=== PATIENT | female | born 1965 | race Caucasian/White ===

== ENCOUNTER → 2019-08-07 | Outpatient (CLI) | payer BC ==
[~2019-08-07] MED LIST: ACET-1600 PO
[2019-08-07 11:50] LABS: BASOPHILS # (AUTO) 0.02 x10^3/uL (0-0.1); BASOPHILS % (AUTO) 0 % (0-1); EOSINOPHILS # (AUTO) 0.07 x10^3/uL (0-0.4); EOSINOPHILS % (AUTO) 1 % (1-7); LYMPHOCYTES % (AUTO) 17 % (22-44); MD NO; MEAN CORPUSCULAR HEMOGLOBIN 31.1 pg (27.0-34.8); MEAN CORPUSCULAR HGB CONC 34.2 g/dL (32.4-35.8); MEAN PLATELET VOLUME 8.8 fL (7.4-10.4); MONOCYTES # (AUTO) 0.35 x10^3/uL (0.2-0.8); MONOCYTES % (AUTO) 5 % (2-9); NEUTROPHILS # (AUTO) 5.14 x10^3/uL (1.8-6.8); NEUTROPHILS % (AUTO) 77 % (42-75); PLATELET COUNT 271 x10^3/uL (130-400); RED BLOOD COUNT 4.89 x10^6/uL (3.82-5.3); RED CELL DISTRIBUTION WIDTH 13.7 % (9.6-15.2)
[2019-08-07 11:58] LABS: MICROSCOPIC NOT IND
[2019-08-07 11:59] LABS: ANION GAP 5 mmol/L (5-15); CHLORIDE 108 mmol/L (98-107); CREATININE 0.79 mg/dL (0.55-1.02); INTERNATIONAL NORMALIZED RATIO 0.93 (0.93-1.1); PROTHROMBIN TIME 9.8 Seconds (9.6-11.5)
[2019-08-07 11:59] LABS: CULTURE INDICATED? NO
== END | disposition home or self-care (01) ==
LOC: STAR 10:44
PROVIDERS: ATTEND Neurological Surgery
DX: Z01.818 Encounter for other preprocedural examination (principal); M43.16 Spondylolisthesis, lumbar region; M47.814 Spondylosis without myelopathy or radiculopathy, thoracic region
CPT/HCPCS: 36415; 71046; 80048; 81003; 85025; 85610; 85730; 93005

== ENCOUNTER 2019-08-11 09:38 | Inpatient (IN) | payer BC ==
[~2019-08-11] VITALS: Ht 172.7 cm; Wt 85.8 kg
[~2019-08-11 09:38] MED LIST changes: -AMBERIN PO; +BACITRACIN 50,000 UNIT ONE; +BUPIVACAINE/PF-EPI 0.25% 1:200K ONE; +BUPIVACAINE/PF-EPI 0.5% 1:200K ONE; -CALCIUM PO; -GLUCOSAMINE PO; -HYDR-3245 PO; -METH750T2 PO; -MULT-658 PO; -NAPR220C2 PO; -SUMA50TA3 PO; +VANCOMYCIN 1,000 MG ONE
[2019-08-11] MEDS ORDERED: LACTATED RINGERS 1,000 ML IV SCH (09:55)
[2019-08-11] MEDS ORDERED: ACETAMINOPHEN 500 MG TABLET PO ONE (10:00)
[2019-08-11] MEDS ORDERED: LIDOCAINE-MPF 1%, 2ML INFIL ONE (10:00)
[2019-08-11] MEDS ORDERED: GABAPENTIN 300 MG CAPSULE PO ONE (10:00)
[2019-08-11] MEDS ORDERED: CHLORHEXIDINE 15 ML UDC MM ONE (10:00)
[2019-08-11 10:08] VITALS: BP 131/83
[2019-08-11 10:16] LABS: HCG UR SG 1.018 (1.003-1.030)
[2019-08-11] MEDS ORDERED: NAPR220C2 PO (10:30)
[2019-08-11] MEDS ORDERED: GLUCOSAMINE PO (10:32)
[2019-08-11] MEDS ORDERED: CALCIUM PO (10:32)
[2019-08-11] MEDS ORDERED: MULT-658 PO (10:32)
[2019-08-11] MEDS ORDERED: AMBERIN PO (10:32)
[2019-08-11] MEDS ORDERED: SUMA50TA3 PO (10:43)
[2019-08-11] MEDS ORDERED: SUCCINYLCHOLINE 20 MG/ML, 10ML ONE ×2 (11:06)
[2019-08-11] MEDS ORDERED: MIDAZOLAM 1 MG/ML, 2ML ONE (11:06)
[2019-08-11] MEDS ORDERED: PROPOFOL 50 ML ONE ×2 (11:06→15:23)
[2019-08-11] MEDS ORDERED: PROPOFOL 10 MG/ML, 20ML ONE (11:06)
[2019-08-11] MEDS ORDERED: FENTANYL PF 250 MCG/5ML ONE (11:06)
[2019-08-11] MEDS ORDERED: ONDANSETRON 2MG/ML, 2ML ONE (11:07)
[2019-08-11] MEDS ORDERED: LIDOCAINE-MPF 2% ,5ML ONE (11:07)
[2019-08-11] MEDS ORDERED: ROCURONIUM 10MG/ML,5ML ONE (11:07)
[2019-08-11] MEDS ORDERED: CEFAZOLIN 1,000 MG ONE ×2 (11:07)
[2019-08-11] MEDS ORDERED: DEXAMETHASONE 4 MG/ML, 1ML ONE ×2 (11:07)
[2019-08-11] MEDS ORDERED: LORazepam 2 MG/ML, 1ML IVPush PRN (14:30)
[2019-08-11] MEDS ORDERED: PROMETHAZINE 25 MG/ML, 1ML IV PRN (14:30)
[2019-08-11] MEDS ORDERED: FENTANYL PF 100 MCG/2ML IV PRN (14:30)
[2019-08-11] MEDS ORDERED: MEPERIDINE/PF 25MG/ML,1ML IVPush PRN (14:30)
[2019-08-11] MEDS ORDERED: ONDANSETRON 2MG/ML, 2ML IV PRN (14:30)
[2019-08-11] MEDS ORDERED: ACETAMINOPHEN 500 MG TABLET ONE (14:30)
[2019-08-11] MEDS ORDERED: OXYcodone 5 MG/5 ML ORAL.SOL UDC PO PRN (14:30)
[2019-08-11] MEDS ORDERED: LABETALOL 5MG/ML, 20ML IV PRN (14:30)
[2019-08-11] MEDS ORDERED: hydrALAzine 20 MG/ML, 1ML IV PRN (14:30)
[2019-08-11] MEDS: HYDROmorphone 2 MG/ML, 1ML IVPush PRN ×2 (17:50→18:11)
[2019-08-11] MEDS ORDERED: HYDROmorphone 1 MG/ML, 1ML INJ ONE (17:51)
[2019-08-11] MEDS ORDERED: OXYcodone 5 MG/5 ML ORAL.SOL UDC ONE (17:52)
[2019-08-11] MEDS ORDERED: MEPERIDINE/PF 100 MG/ML IM PRN (18:00)
[2019-08-11] MEDS ORDERED: METHOCARBAMOL 1,000 MG in DEXTROSE 5% 100 ML IV ONE (18:00)
[2019-08-11] MEDS ORDERED: PHARMACY MAY ADJ FOR RENAL FX MC PRN (18:00)
[2019-08-11] MEDS ORDERED: HYDROmorphone PCA 30 MG/30 ML IV PRN (18:00)
[2019-08-11] MEDS ORDERED: DIPHENHYDRAMINE 50 MG/ML, 1ML IVPush PRN (18:00)
[2019-08-11] MEDS ORDERED: ACETAMINOPHEN 325 MG TABLET PO PRN (18:00)
[2019-08-11] MEDS ORDERED: PROMETHAZINE 25 MG/ML, 1ML IM PRN (18:00)
[2019-08-11] MEDS ORDERED: BISACODYL 10 MG SUPP PR PRN (18:00)
[2019-08-11] MEDS ORDERED: MAGNESIUM HYDROXIDE 8%, 30ML UDC PO PRN (18:00)
[2019-08-11] MEDS ORDERED: SUMATRIPTAN 50 MG TABLET PO PRN (18:00)
[2019-08-11] MEDS ORDERED: DIAZEPAM 5 MG TABLET PO PRN (18:00)
[2019-08-11] MEDS ORDERED: HYDROmorphone 1 MG/ML, 1ML INJ IVPush PRN (18:00)
[2019-08-11] MEDS ORDERED: FENTANYL PF 100 MCG/2ML ONE (18:32)
[2019-08-11 19:34] VITALS: BP 104/61
[2019-08-11] MEDS: SODIUM CHLORIDE FLUSH 10ML SYR IVF SCH (21:00)
[2019-08-11] MEDS: ONDANSETRON 2MG/ML, 2ML IVPush PRN (21:58)
[2019-08-11] MEDS: NS + 20MEQ KCL 1,000 ML IV SCH (22:07)
[2019-08-11] MEDS: CEFAZOLIN PMX 1GM/50ML 50 ML IVPB SCH (22:08)
[2019-08-12 00:05] VITALS: BP 97/50
[2019-08-12 03:56] VITALS: BP 118/73
[2019-08-12] MEDS: ONDANSETRON 2MG/ML, 2ML IVPush PRN ×4 (04:05→22:45)
[2019-08-12] MEDS: HYDROcodone/APAP 10/325 MG TABLET PO PRN ×6 (05:27→22:45)
[2019-08-12] MEDS ORDERED: morphine SULFATE ORAL.CONC 20 MG/ML PO PRN (06:00)
[2019-08-12] MEDS ORDERED: MORPHINE SULFATE 4 MG/ML, 1ML IVPush PRN (06:00)
[2019-08-12] MEDS ORDERED: morphine SULFATE 10 MG/ML, 1ML ONE (06:01)
[2019-08-12 06:12] LABS: ANION GAP 7 mmol/L (5-15); CALCIUM 8.3 mg/dL (8.5-10.1); CHLORIDE 106 mmol/L (98-107); CREATININE 0.75 mg/dL (0.55-1.02)
[2019-08-12 06:22] LABS: BASOPHILS % (AUTO) 0 % (0-1); EOSINOPHILS % (AUTO) 0 % (1-7); LYMPHOCYTES # (AUTO) 0.45 x10^3/uL (1-3.4); LYMPHOCYTES % (AUTO) 3 % (22-44); MD NO; MEAN CORPUSCULAR HEMOGLOBIN 30.5 pg (27.0-34.8); MEAN CORPUSCULAR HGB CONC 33.4 g/dL (32.4-35.8); MEAN CORPUSCULAR VOLUME 91.2 fL (80-100); MEAN PLATELET VOLUME 8.7 fL (7.4-10.4); MONOCYTES # (AUTO) 0.78 x10^3/uL (0.2-0.8); MONOCYTES % (AUTO) 6 % (2-9); NEUTROPHILS # (AUTO) 12.94 x10^3/uL (1.8-6.8); NEUTROPHILS % (AUTO) 91 % (42-75); PLATELET COUNT 268 x10^3/uL (130-400); RED BLOOD COUNT 4.03 x10^6/uL (3.82-5.3); RED CELL DISTRIBUTION WIDTH 13.9 % (9.6-15.2)
[2019-08-12 06:30] VITALS: BP 120/70
[2019-08-12] MEDS: CEFAZOLIN PMX 1GM/50ML 50 ML IVPB SCH (06:34)
[2019-08-12] MEDS: METHOCARBAMOL 750 MG TABLET PO PRN ×2 (08:10→16:42)
[2019-08-12] MEDS: SODIUM CHLORIDE FLUSH 10ML SYR IVF SCH ×2 (08:11→22:45)
[2019-08-12] MEDS: SENNA/DOCUSATE TABLET PO SCH (08:12)
[2019-08-12] MEDS: NS + 20MEQ KCL 1,000 ML IV SCH (11:00)
[2019-08-12 13:43] VITALS: BP 122/72
[2019-08-12 19:47] VITALS: BP 116/63
[2019-08-13] MEDS: NS + 20MEQ KCL 1,000 ML IV SCH (00:20)
[2019-08-13] MEDS: METHOCARBAMOL 750 MG TABLET PO PRN ×2 (00:46→09:09)
[2019-08-13] MEDS: HYDROcodone/APAP 10/325 MG TABLET PO PRN ×3 (02:40→11:10)
[2019-08-13 02:42] VITALS: BP 106/71
[2019-08-13 05:46] LABS: ANION GAP 4 mmol/L (5-15); CALCIUM 8.2 mg/dL (8.5-10.1); CHLORIDE 109 mmol/L (98-107); CREATININE 0.82 mg/dL (0.55-1.02)
[2019-08-13 05:54] LABS: BASOPHILS # (AUTO) 0.03 x10^3/uL (0-0.1); BASOPHILS % (AUTO) 0 % (0-1); EOSINOPHILS # (AUTO) 0.01 x10^3/uL (0-0.4); EOSINOPHILS % (AUTO) 0 % (1-7); LYMPHOCYTES # (AUTO) 0.86 x10^3/uL (1-3.4); LYMPHOCYTES % (AUTO) 9 % (22-44); MD NO; MEAN CORPUSCULAR HEMOGLOBIN 30.6 pg (27.0-34.8); MEAN CORPUSCULAR HGB CONC 33.1 g/dL (32.4-35.8); MEAN CORPUSCULAR VOLUME 92.3 fL (80-100); MEAN PLATELET VOLUME 8.6 fL (7.4-10.4); MONOCYTES # (AUTO) 0.53 x10^3/uL (0.2-0.8); MONOCYTES % (AUTO) 6 % (2-9); NEUTROPHILS # (AUTO) 7.77 x10^3/uL (1.8-6.8); NEUTROPHILS % (AUTO) 84 % (42-75); PLATELET COUNT 228 x10^3/uL (130-400); RED BLOOD COUNT 3.82 x10^6/uL (3.82-5.3); RED CELL DISTRIBUTION WIDTH 13.7 % (9.6-15.2)
[2019-08-13] MEDS: ONDANSETRON 2MG/ML, 2ML IVPush PRN (06:38)
[2019-08-13 06:44] VITALS: BP 126/83
[2019-08-13] MEDS ORDERED: HYDR-3245 PO (08:18)
[2019-08-13] MEDS ORDERED: METH750T2 PO (08:18)
[2019-08-13] MEDS: SENNA/DOCUSATE TABLET PO SCH (09:09)
[2019-08-13] MEDS: SODIUM CHLORIDE FLUSH 10ML SYR IVF SCH (09:10)
== END 2019-08-13 11:45 | disposition home or self-care (01) | DRG 460 ==
LOC: ORIP 09:38 → 4NE 18:55
PROVIDERS: ADMIT Neurological Surgery; ATTEND Neurological Surgery
PROC: 3E0U0GB Introduction of Recombinant Bone Morphogenetic Protein into Joints, Open Approach (ICD-10-PCS; 2019-08-11)
PROC: 0SG00AJ Fusion of Lumbar Vertebral Joint with Interbody Fusion Device, Posterior Approach, Anterior Column, Open Approach (ICD-10-PCS; principal; 2019-08-11 12:30)
DX: M43.16 Spondylolisthesis, lumbar region (principal); M48.061 Spinal stenosis, lumbar region without neurogenic claudication; M54.16 Radiculopathy, lumbar region
CPT/HCPCS: 36415; 72100; J3490; 80048; 81025; 85025; 95938; 95941; C1713; C1776; G0378; J0690; J1100; J1170; J2250; J2405; J2550; J2704; J3010; J3370; J3480; C1762; J0330; J2800; J7120

== ENCOUNTER → 2019-08-11 | Outpatient (CLI) | payer BC ==
[~2019-08-11] MED LIST changes: +AMBERIN PO; +CALCIUM PO; +GLUCOSAMINE PO; +HYDR-3245 PO; +METH750T2 PO; +MULT-658 PO; +NAPR220C2 PO; +SUMA50TA3 PO
== END | disposition home or self-care (01) ==
LOC: RAD 08:00
PROVIDERS: ATTEND Neurological Surgery
DX: M51.36 Other intervertebral disc degeneration, lumbar region (principal); M47.816 Spondylosis without myelopathy or radiculopathy, lumbar region; M48.061 Spinal stenosis, lumbar region without neurogenic claudication; M25.78 Osteophyte, vertebrae
CPT/HCPCS: 72131